=== PATIENT | male | born 1930 | race Caucasian/White ===

== ENCOUNTER 2016-12-31 06:14 | Day surgery (SDC) | payer OTHER ==
--- NOTE | ~2016-12-31 | EGD ---
EGD REPORT [facility] [address] [place]. [id number] NAME: CANDIDA PRESTON SR : 32 STATUS : REG [facility]#: [id number] AGE: 86 ADM/REG DATE : 12/31/16 MR#: [id number] REPORT SERV DATE: 12/31/16 DICTATED BY: BRIANA LEE DATE: 12/31/16 REPORT STATUS : Draft TRANSCRIBED BY: [employer] DATE: 12/31/16 [facility] Patient Name: Candida Preston Date of : 1930 Attending MD: BRIANA LEE MD Procedure Date No Time: 12/31/2016 Procedure: Colonoscopy Indications: Heme positive stool, Last colonoscopy: November 2010 Referring MD: LEONORA NAVA Medicines: See the Anesthesia note for documentation of the administered medications Complications: No immediate complications. Procedure: Pre-Anesthesia Assessment: - ASA Grade Assessment: III - A patient with severe systemic disease. After I obtained informed consent, the scope was passed under direct vision. Throughout the procedure, the patient's blood pressure, pulse, and oxygen saturations were monitored continuously. The PCF [id number] was introduced through the anus and advanced to the cecum, identified by appendiceal orifice and ileocecal valve. The colonoscopy was performed without difficulty. The patient tolerated the procedure well. The quality of the bowel preparation was adequate. Findings: The perianal and digital rectal examinations were normal. Internal hemorrhoids were found during retroflexion and were small. A sessile polyp was found in the rectum. The polyp was small in size. The polyp was removed with a cold biopsy forceps. Resection and retrieval were complete. Diverticula were found in the sigmoid colon. Impression: - Internal hemorrhoids. - One small polyp in the rectum. Resected and retrieved. - Diverticulosis in the sigmoid colon. Recommendation: - Patient has a contact number available for emergencies. The signs and symptoms of potential delayed complications were discussed with the patient. Return to normal activities tomorrow. Written discharge instructions were provided to the patient. - Regular diet. - Continue present medications. - Repeat colonoscopy is not recommended for surveillance. EGD REPORT [address] [address] NAME: CANDIDA PRESTON : [birth year] STATUS : [facility]#: [id number] AGE: 86 ADM/REG DATE : 12/31/16 MR#: [id number] REPORT SERV DATE: 12/31/16 DICTATED BY: BRIANA LEE DATE: 12/31/16 REPORT STATUS : Draft TRANSCRIBED BY: [employer] DATE: 12/31/16 - FOR YOUR BIOPSY RESULTS: Please go to [email or web address] and register to receive your results via the portal. Your biopsy results will be posted there in about 7 to 10 days. IF you do not see result in 10 days, call office. Procedure Code(s): --- Professional --- 81524, Colonoscopy, flexible, proximal to splenic flexure; with biopsy, single or multiple Diagnosis Code(s): --- Professional --- K64.8, Other hemorrhoids K62.1, Rectal polyp R19.5, Other fecal abnormalities CPT copyright 2013 [employer]. All rights reserved. The codes documented in this report are preliminary and upon music leader review may be revised to meet current compliance requirements. Briana Lee MD BRIANA LEE MD 12/31/2016 8:30 AM This report has been signed electronically. Number of Addenda: 0 Note Initiated On: 12/31/2016 8:01 AM Scope Withdrawal Time 0 hours 8 minutes 18 seconds [address] [place] [id number]
--- NOTE | ~2016-12-31 | EGD ---
EGD REPORT [facility] [address] [place] [address] NAME: CANDIDA PRESTON SR : 32 STATUS : REG [facility]#: [id number] AGE: 86 ADM/REG DATE : 12/31/16 MR#: [id number] REPORT SERV DATE: 12/31/16 DICTATED BY: DATE: REPORT STATUS : Draft TRANSCRIBED BY: [employer] DATE: 12/31/16 [facility] Patient Name: Candida Preston Date of : 1930 Attending MD: BRIANA LEE MD Procedure Date No Time: 12/31/2016 Procedure: Upper GI endoscopy Indications: Dysphagia, Heme positive stool Referring MD: LEONORA NAVA Medicines: See the Anesthesia note for documentation of the administered medications Complications: No immediate complications. Procedure: Pre-Anesthesia Assessment: - ASA Grade Assessment: III - A patient with severe systemic disease. After obtaining informed consent, the endoscope was passed under direct vision. Throughout the procedure, the patient's blood pressure, pulse, and oxygen saturations were monitored continuously. The GIF H190 [id number] was introduced through the mouth, and advanced to the second part of duodenum. The upper GI endoscopy was accomplished without difficulty. The patient tolerated the procedure well. Findings: Mildly erythematous mucosa with erosions was found in the duodenal bulb. The gastric antrum was normal. Biopsies were taken with a cold forceps for histology. The cardia and gastric fundus were normal on retroflexion. A small hiatus hernia was present. Impression: - Erythematous duodenopathy. - Normal antrum. Biopsied. - Hiatus hernia. Recommendation: - Patient has a contact number available for emergencies. The signs and symptoms of potential delayed complications were discussed with the patient. Return to normal activities tomorrow. Written discharge instructions were provided to the patient. - Regular diet. - Continue present medications. - FOR YOUR BIOPSY RESULTS: Please go to [email or web address] and register to receive your results via the portal. Your biopsy results will be EGD REPORT [address] [address] NAME: CANDIDA PRESTON : [birth year] STATUS : REG [facility] [place] PAT#: [id number] AGE: 86 ADM/REG DATE : 12/31/16 MR#: [id number] REPORT SERV DATE: 12/31/16 DICTATED BY: DATE: REPORT STATUS : Draft TRANSCRIBED BY: [employer] DATE: 12/31/16 posted there in about 7 to 10 days. IF you do not see result in 10 days, call office. - Increase your Zantac to two 150mg tab twice per day for one month. Then one twice per day - Avoid NSAIDS, BC powder, Goody's Powder Procedure Code(s): --- Professional --- 30355, Esophagogastroduodenoscopy, flexible, transoral; with biopsy, single or multiple Diagnosis Code(s): --- Professional --- K31.89, Other diseases of stomach and duodenum K44.9, Diaphragmatic hernia without obstruction or gangrene R13.10, Dysphagia, unspecified R19.5, Other fecal abnormalities CPT copyright 2013 [employer]. All rights reserved. The codes documented in this report are preliminary and upon supervisor logging review may be revised to meet current compliance requirements. Briana Lee MD BRIANA LEE MD 12/31/2016 8:14 AM This report has been signed electronically. Number of Addenda: 0 Note Initiated On: 12/31/2016 8:04 AM Scope Withdrawal Time 0 hours 0 minutes 0 seconds [address] [place] [address] [id number]
[~2016-12-31 06:14] MED LIST: ASAB PO; GLUCOTROL5 PO; HCTZ12.5 PO; HYT2 PO; KLOR-CON 1010 MEQ PO; L40 PO; LEVAQUIN750 MG PO; LOP25 PO; LORTAB10 PO; MEVACOR PO; MIRALAXPKT PO; MULTIPLE VIT PO; PRIN5 PO; PROSCAR5 PO; ULTRAM50 PO; ZANTAC 150 PO
== END 2016-12-31 23:59 | disposition home or self-care (01) ==
LOC: DMU 06:14
PROVIDERS: Internal Medicine Gastroenterology
PROC: 0DBP8ZZ Excision of Rectum, Via Natural or Artificial Opening Endoscopic (ICD-10-PCS; principal; 2016-12-31 08:00)
PROC: 0DB68ZX Excision of Stomach, Via Natural or Artificial Opening Endoscopic, Diagnostic (ICD-10-PCS; 2016-12-31 08:00)
DX: D12.8 Benign neoplasm of rectum (principal); K29.50 Unspecified chronic gastritis without bleeding; K64.8 Other hemorrhoids; R19.5 Other fecal abnormalities; K31.89 Other diseases of stomach and duodenum; K21.9 Gastro-esophageal reflux disease without esophagitis; K44.9 Diaphragmatic hernia without obstruction or gangrene; R13.10 Dysphagia, unspecified; I10 Essential (primary) hypertension; I49.9 Cardiac arrhythmia, unspecified; M19.90 Unspecified osteoarthritis, unspecified site; H91.90 Unspecified hearing loss, unspecified ear; E78.00 Pure hypercholesterolemia, unspecified; K57.92 Diverticulitis of intestine, part unspecified, without perforation or abscess without bleeding; E11.9 Type 2 diabetes mellitus without complications; D64.9 Anemia, unspecified; Z95.0 Presence of cardiac pacemaker; Z88.0 Allergy status to penicillin; Z88.5 Allergy status to narcotic agent; Z88.1 Allergy status to other antibiotic agents; Z85.46 Personal history of malignant neoplasm of prostate; Z90.49 Acquired absence of other specified parts of digestive tract; Z89.201 Acquired absence of right upper limb, unspecified level
CPT/HCPCS: 82962; 88305; J2370